=== PATIENT | female | born 1960 | race Caucasian/White ===

== ENCOUNTER 2017-06-26 07:17 | Day surgery (SDC) | payer BC ==
[~2017-06-26] VITALS: Ht 170.2 cm; Wt 62.7 kg
[~2017-06-26 07:17] MED LIST: CELEXA40 MG PO; NEXIUM40 MG PO; PERCOCET 5/31 TABLET PO; XANAX0.5 MG PO; ZOFRAN4 MG PO
[2017-06-26 07:56] VITALS: BP 120/58
[2017-06-26] MEDS ORDERED: ZOFRAN4 MG PO (08:08)
[2017-06-26] MEDS ORDERED: NORCO 5/3251 TABLET PO (11:01)
[2017-06-26 13:05] VITALS: BP 106/79
[2017-06-26 13:55] VITALS: BP 116/74
== END 2017-06-26 13:55 | disposition home or self-care (01) ==
LOC: SDC 07:17
DX: K80.10 Calculus of gallbladder with chronic cholecystitis without obstruction (principal); K21.0 Gastro-esophageal reflux disease with esophagitis; F41.1 Generalized anxiety disorder; G47.30 Sleep apnea, unspecified; Z88.0 Allergy status to penicillin; F17.210 Nicotine dependence, cigarettes, uncomplicated
CPT/HCPCS: 74300; 88304; J0131; J0330; J1100; J1170; J1885; J2405; J2710; J3010; S0020; S0074

== ENCOUNTER 2017-07-22 07:10 | Emergency (ER) | payer BC ==
[~2017-07-22] VITALS: Ht 170.2 cm; Wt 60.6 kg
[~2017-07-22 07:10] MED LIST changes: +NORCO 5/3251 TABLET PO
[2017-07-22 08:08] LABS: BASOPHIL (%) 0.2 % (0-1); EOSINOPHIL (%) 0 % (0-5); HEMATOCRIT 36.5 % (36.0-46.0); HEMOGLOBIN 12.4 G/DL (11.9-15.5); IMMATURE GRANULOCYTE (%) 0.4 % (0.0-0.7); LYMPHOCYTE (%) 6.1 % (15-42); LYMPHOCYTE COUNT 0.9 K/uL (1.0-2.8); MCH 26.6 PG (29.0-34.0); MCV 78.2 FL (83-99); MONOCYTE (%) 5.1 % (3-12); MONOCYTE COUNT 0.7 K/uL (0-0.8); NEUTROPHIL (%) 88.2 % (45-76); NEUTROPHIL COUNT 12.6 K/uL (1.8-6.4); PLATELET COUNT 318 K/uL (156-360); RBC DIS.WIDTH-CV 17.9 % (11.8-14.6); RBC DIS.WIDTH-SD 50.8 % (39-53); RED BLOOD COUNT 4.67 M/uL (3.80-5.20); WHITE BLOOD COUNT 14.2 K/uL (4.1-10.2)
[2017-07-22 08:24] LABS: ALBUMIN 4.1 g/dL (3.2-4.8); CHLORIDE 102 mEq/L (99-109); POTASSIUM 3.6 mEq/L (3.7-5.4); SODIUM 140 mEq/L (136-147)
[2017-07-22 08:27] LABS: GLUCOSE 133 mg/dL (70-99); TOTAL PROTEIN 6.6 g/dL (6.4-8.3)
[2017-07-22 08:29] LABS: TOTAL BILIRUBIN 0.9 mg/dL (0.0-1.0)
[2017-07-22 08:30] LABS: ALKALINE PHOSPHATASE 74 IU/L (3-129)
[2017-07-22 08:31] LABS: CREATININE 0.6 mg/dL (0.6-1.3); GFR ESTIMATE (CALCULATED) > 59 mL/min/
[2017-07-22 08:32] LABS: AST (GOT) 19 IU/L (2-34); UREA NITROGEN (BUN) 11 mg/dL (9-23)
[2017-07-22 08:33] LABS: ALT (GPT) 12 IU/L (3-49)
[2017-07-22 08:34] LABS: LIPASE 26 U/L (1.0-51.0)
[2017-07-22] MEDS ORDERED: PHENERGAN25 MG PR (09:46)
[2017-07-22 09:54] VITALS: BP 155/104
== END 2017-07-22 09:55 | disposition home or self-care (01) ==
LOC: EME 07:10
PROVIDERS: Physician Assistant Medical
DX: R10.84 Generalized abdominal pain (principal); R11.2 Nausea with vomiting, unspecified; Z88.0 Allergy status to penicillin
CPT/HCPCS: 74022; 80053; 83690; 85025; 99281; 99285; J1885; J2405; J7030